=== PATIENT | female | born 1965 | race Caucasian/White ===

== ENCOUNTER 2023-05-24 23:51 | Emergency (ER) | payer OTHER | END 2023-05-25 05:08 | disposition home or self-care (01) | LOC: ER 23:51 | DX: N20.0 Calculus of kidney (principal); I10 Essential (primary) hypertension; E11.9 Type 2 diabetes mellitus without complications; E78.00 Pure hypercholesterolemia, unspecified; Z98.890 Other specified postprocedural states; Z79.899 Other long term (current) drug therapy | CPT/HCPCS: 99285; 74176; 96374; 96375; 85025; 80048; 81001; 36415; J2405; J1885 ==

== ENCOUNTER 2023-07-13 21:14 | Emergency (ER) | payer OTHER ==
[~2023-07-13] VITALS: Ht 165.1 cm; Wt 86.2 kg
[2023-07-13 21:52] VITALS: BP 142/89; TEMP 98.4; O2SAT 98
[2023-07-13] MEDS ORDERED: IBUPROFEN 600 MG TABLET ONE (23:00)
[2023-07-13] MEDS ORDERED: AMOXICILLIN TRIHYDRATE 500 MG CAPSULE PO ONE (23:00)
[2023-07-13] MEDS ORDERED: IBUPROFEN 600 MG TABLET PO ONE (23:00)
[2023-07-13] MEDS ORDERED: AMOXICILLIN TRIHYDRATE 250 MG CAPSULE ONE (23:00)
[2023-07-13] MEDS ORDERED: AMOX500C2 PO (23:00)
[2023-07-13] MEDS ORDERED: CIPR7.5D9 RIGHT EAR (23:00)
== END 2023-07-13 23:09 | disposition home or self-care (01) ==
LOC: ER 21:15
DX: H60.91 Unspecified otitis externa, right ear (principal); R59.1 Generalized enlarged lymph nodes